=== PATIENT | female | born 2000 | race Caucasian/White ===

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

== ENCOUNTER 2023-06-07 20:19 | Emergency (ER) | payer OTHER, BC ==
[2023-06-07] MEDS ORDERED: Proparacaine 0.5% Ophth Soln 15 ML BOTTLE *BULK OP ONE (23:30)
[2023-06-07] MEDS ORDERED: Erythromycin 0.5% Ophth Oint 3.5 GM TUBE OP ONE (23:45)
[2023-06-07] MEDS ORDERED: Home HYDROcodone/Acetaminophen 5/325 MG #4 TABS/PACK PO ONE (23:45)
[2023-06-08 00:12] VITALS: BP 114/68
== END 2023-06-08 00:12 | disposition home or self-care (01) ==
LOC: ED 20:19
DX: S05.01XA Injury of conjunctiva and corneal abrasion without foreign body, right eye, initial encounter (principal); X58.XXXA Exposure to other specified factors, initial encounter; Y92.69 Other specified industrial and construction area as the place of occurrence of the external cause; Y99.0 Civilian activity done for income or pay